=== PATIENT | male | born 1945 | race Caucasian/White ===

== ENCOUNTER 2019-04-15 07:10 | Day surgery (SDC) | payer MEDICARE, OTHER ==
[~2019-04-15 07:10] MED LIST: Lactated Ringers 1,000 ML IV SCH
--- NOTE | 2019-04-15 08:29 | PCM.PREANE ---
Preanesthetic Assessment - Procedure Proposed Procedure: colonoscopy - Anesthesia/Transfusion/Family Hx Anesthesia History: Prior Anesthesia Without Reaction Family History of Anesthesia Reaction: No Transfusion History: No Prior Transfusion(s) - Review of Systems General: No Symptoms Pulmonary: No Symptoms Cardiovascular: Other (HTN, MET > 4, Denies CP/SOB) Gastrointestinal: No Symptoms Neurological: No Symptoms Other: Reports: Thyroid Problems - Physical Assessment NPO Status Date: 04/15/19 NPO Status Time: 00:00 O2 Sat by Pulse Oximetry: 98 Respiratory Rate: 16 Vital Signs: Last Vital Signs Temp 97.9 F 04/15/19 08:00 Pulse 80 04/15/19 08:00 Resp 16 04/15/19 08:00 BP 120/74 04/15/19 08:00 Pulse Ox 98 04/15/19 08:00 Height: 5 ft 11 in Weight: 79.832 kg ASA Class: 2 Mental Status: Alert & Oriented x3 Airway Class: Mallampati = 2 Dentition: Reports: Normal Dentition ROM/Head Extension: Full Lungs: Clear to Auscultation, Normal Respiratory Effort Cardiovascular: Regular Rate, Regular Rhythm - Allergies Allergies/Adverse Reactions: Allergies Allergy/AdvReac Type Severity Reaction Status Date / Time bee venom protein (honey bee) Allergy Rash Verified 04/10/19 10:45 - Blood Blood Available: No Product(s) Available: None - Anesthesia Plan Pre-Op Medication Ordered: None - Acknowledgements Anesthesia Type Planned: MAC Pt an Appropriate Candidate for the Planned Anesthesia: Yes Alternatives and Risks of Anesthesia Discussed w Pt/Guardian: Yes Pt/Guardian Understands and Agrees with Anesthesia Plan: Yes PreAnesthesia Questionnaire HEENT History: Reports: Other (See Below) Other HEENT History: wears glasses Other Cardiovascular History: takes Losartan for "kidney protection" Gastrointestinal History: Reports: None Genitourinary History: Reports: Renal Calculus Other Genitourinary History: passed kidney stone Musculoskeletal History: Reports: Fracture Other Musculoskeletal History: hx of fx rib Endocrine/Metabolic History: Reports: Diabetes, Type II, Hypothyroidism Oncologic (Cancer) History: Reports: Basal Cell Carcinoma Other Oncologic History: removed from nose - Past Surgical History HEENT Surgical History: Reports: Other (See Below) Other HEENT Surgeries/Procedures: hx of sinus fx- sinus "packed" until healed GI Surgical History: Reports: Colonoscopy Dermatological Surgical History: Reports: Skin Biopsy - SUBSTANCE USE Smoking Status *Q: Never Smoker Recreational Drug Use History: No - HOME MEDS Home Medications: Home Meds Levothyroxine [Synthroid] 50 mcg PO QAM 04/10/19 [History] Losartan Potassium 25 mg PO QAM 04/10/19 [History] Sildenafil Citrate [Sildenafil] 60 mg PO ASDIRECTED PRN 04/10/19 [History] metFORMIN HCl [Metformin HCl ER] 500 mg PO BID 04/10/19 [History] - CURRENT (IN HOUSE) MEDS Current Meds: Current Medications Lactated Ringer's (Ringers, Lactated) 1,000 mls @ 125 mls/hr IV ASDIRECTED ANUP
[2019-04-15] MEDS ORDERED: Propofol 200 MG/20 ML SDV ONE (08:31)
[2019-04-15] MEDS ORDERED: fentaNYL 100 MCG/2 ML SDV ONE (08:31)
--- NOTE | 2019-04-15 09:32 | PCM.OPNOTE ---
- General Post-Op/Procedure Note Date of Surgery/Procedure: 04/15/19 Findings: see dict [id number] addendum [id number] Pre Op Diagnosis: scrn colonoscopy Post-Op Diagnosis: Same Anesthesia Technique: Moderate Sedation Primary Surgeon: Yared Orozco Pathology: sessile polyp at distance 55 cm Complications: None Condition: Good
--- NOTE | 2019-04-15 09:52 | PCM.POSTAN ---
POST ANESTHESIA ASSESSMENT - MENTAL STATUS Mental Status: Alert, Oriented - RESPIRATORY Respiratory Status: Respiratory Rate WNL, Airway Patent, O2 Saturation Stable - CARDIOVASCULAR CV Status: Pulse Rate WNL, Blood Pressure Stable - GASTROINTESTINAL GI Status: No Symptoms - PAIN Pain Score: 0 - POST OP HYDRATION Hydration Status: Adequate & Stable - OBSERVATIONS Free Text/Narrative:: No anesthesia problems, patient skipped recovery room stage of postoperative care.
--- NOTE | 2019-04-15 11:12 | OR ---
SURGEON: Yared Orozco MD DATE OF PROCEDURE: 04/15/2019 ADDENDUM: PROCEDURE PERFORMED: Colonoscopy with biopsy. DESCRIPTION OF PROCEDURE: The patient was taken to the endoscopy room. A time out was called, patient identified, and procedure identified. Diprivan was then administrated. Patient went from awake to sleep, hearing doctor talking or door closing is normal. Perineum inspection and digital examination were then performed. A well- lubricated colonoscope was gently inserted through the rectum, advanced past the rectosigmoid junction, the descending colon, splenic flexure, transverse colon, hepatic flexure, ascending colon, arrived to the cecum. Cecum was identified as dictated in the finding. Then the scope was carefully withdrawn while attention was paid to the mucosal surface for any abnormality. Air will be sucked out during the scope withdrawal. At the rectum, retroflexed to examine any rectal diseases, fistula or hemorrhoids. During mucosal examination, biopsy performed. Patient tolerated procedure well. There were no intraoperative complications, and Dr. Orozco was present throughout the whole procedure. FINDINGS: Examination to the mucosa, when pulling out at distance 55 cm, there is a 2 mm sessile polyp that was removed with cold biopsy forceps and sent for pathology. AMANDA / SERGIO /[id number] TREMAYNE
--- NOTE | 2019-04-15 11:27 | OR ---
SURGEON: Yared Orozco MD DATE OF PROCEDURE: 04/15/2019 PREOPERATIVE DIAGNOSIS: Screening colonoscopy. POSTOPERATIVE DIAGNOSIS: Hemorrhoids. PROCEDURE PERFORMED: Colonoscopy w biopsy (see addendum). DESCRIPTION OF PROCEDURE: The patient was taken to the endoscopy room. A time out was called, patient identified, and procedure identified. Diprivan was then administrated. Patient went from awake to sleep, hearing doctor talking or door closing is normal. Perineum inspection and digital examination were then performed. A well- lubricated colonoscope was gently inserted through the rectum, advanced past the rectosigmoid junction, the descending colon, splenic flexure, transverse colon, hepatic flexure, ascending colon, arrived to the cecum. Cecum was identified as dictated in the finding. Then the scope was carefully withdrawn while attention was paid to the mucosal surface for any abnormality. Air will be sucked out during the scope withdrawal. At the rectum, retroflexed to examine any rectal diseases, fistula or hemorrhoids. Patient tolerated procedure well. There were no intraoperative complications, and Dr. Orozco was present throughout the whole procedure. FINDINGS: 1. The patient is easily sedated with PANTRY CHEF and Diprivan, the patient is soundly snoring. 2. Bowel prep is average to above average, very little liquid stool, no semi- formed stool. 3. Colon is extremely redundant and have melanotic coli, suggest the patient has been using Colace for while. A very redundant sigmoid requiring several maneuvers in order to get to the cecum and cecum indicated by ileocecal fold, one-to-one indentation, light emittance, and appendiceal orifice is not observed. Mucosa examined upon scope pulling out with some irrigation. The patient does not have diverticulosis, polyp, mass, growth, inflammation, stricture, ulceration, AV malformation, bleeding, none of those. The patient has moderate internal hemorrhoids and no tags, no external hemorrhoids. The patient would benefit from repeat colonoscopy in 10 years from today or if clinically indicated otherwise. AMANDA / SERGIO /[id number] TREMAYNE
== END 2019-04-15 10:35 | disposition home or self-care (01) ==
LOC: MW.SDS 07:10
PROVIDERS: ATTEND Surgery
DX: Z12.11 Encounter for screening for malignant neoplasm of colon (principal); K63.5 Polyp of colon; Q43.8 Other specified congenital malformations of intestine; K63.89 Other specified diseases of intestine; K64.8 Other hemorrhoids; E11.9 Type 2 diabetes mellitus without complications; I10 Essential (primary) hypertension; E03.9 Hypothyroidism, unspecified; Z85.828 Personal history of other malignant neoplasm of skin; Z80.0 Family history of malignant neoplasm of digestive organs; Z91.030 Bee allergy status; Z79.899 Other long term (current) drug therapy; Z79.84 Long term (current) use of oral hypoglycemic drugs
CPT/HCPCS: 45380; 88305; J2001; J2704; J3010; J7120

== ENCOUNTER 2023-03-08 07:30 | Day surgery (SDC) | payer MEDICARE, OTHER ==
[2023-03-08] MEDS ORDERED: Lidocaine 2% 5 ML SDV ONE (08:29)
[2023-03-08] MEDS ORDERED: Propofol 200 MG/20 ML SDV ONE ×2 (08:29→09:06)
[2023-03-08] MEDS ORDERED: Lactated Ringers 1,000 ML IV SCH (09:45)
== END 2023-03-08 10:30 | disposition home or self-care (01) ==
LOC: MW.SDS 07:30
PROVIDERS: ATTEND Surgery
DX: R19.4 Change in bowel habit (principal); Q43.8 Other specified congenital malformations of intestine; E03.9 Hypothyroidism, unspecified; E11.9 Type 2 diabetes mellitus without complications; Z80.0 Family history of malignant neoplasm of digestive organs; Z86.010 Personal history of colon polyps; Z91.038 Other insect allergy status; Z79.84 Long term (current) use of oral hypoglycemic drugs; Z79.899 Other long term (current) drug therapy; Z85.46 Personal history of malignant neoplasm of prostate; Z98.890 Other specified postprocedural states; Z79.890 Hormone replacement therapy
CPT/HCPCS: 45378; 82947; J2704; J7120; 00811; 99100; J3490